=== PATIENT | female | born 2005 | race Caucasian/White ===

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

== ENCOUNTER → 2024-02-12 | Outpatient (CLI) | payer BC ==
--- NOTE | 2024-02-12 15:21 | US ---
EXAMINATION TYPE: US kidneys/renal and bladder DATE OF EXAM: 02/12/2024 COMPARISON: NONE CLINICAL INDICATION: Female, 18 years old with history of N39.0 recurrent UTI; TECHNIQUE: Grayscale imaging of the bilateral kidneys and urinary bladder: FINDINGS: EXAM MEASUREMENTS: Right Kidney: 11.3 x 4.5 x 5.0 cm Left Kidney: 10.1 x 5.4 x 5.4 cm Right Kidney: No hydronephrosis or masses seen Left Kidney: No hydronephrosis or masses seen Bladder: Not fully distended; anechoic Bilateral Jets seen: Yes Normal Post Void Residual: No There is no evidence for hydronephrosis at this point in time. Corticomedullary differentiation is m aintained bilaterally. No nephrolithiasis is seen. No masses are identified. The urinary bladder is underdistended and anechoic. Abnormal post void urinary bladder residual of 67 mL. IMPRESSION: 1. No hydronephrosis or nephrolithiasis. 2. Abnormal postvoid urinary bladder residual. [facility], , 02/12/2024 3:19 PM
== END | disposition home or self-care (01) ==
LOC: RADUSWWP 14:43
PROVIDERS: ATTEND Family Medicine
DX: N39.0 Urinary tract infection, site not specified (principal)
CPT/HCPCS: 76770